=== PATIENT | female | born 1955 | race Caucasian/White ===

== ENCOUNTER → 2016-04-20 | Outpatient (CLI) | payer OTHER ==
[~2016-04-20] MED LIST: CALCIUM COMPLETE PO; CELLWISE PO; MULTI VITAMINS1 TAB PO; NORCO 325 MG-51 TAB PO; NUTRAVIEW PO; PROVEX CV PO; REPLENEX PO
== END ==
LOC: MC.RAD 13:30
DX: N63 Unspecified lump in breast (principal)

== ENCOUNTER → 2016-04-21 | Outpatient (CLI) | payer OTHER | LOC: MC.RAD 12:59 | DX: C50.412 Malignant neoplasm of upper-outer quadrant of left female breast (principal) ==

== ENCOUNTER → 2016-05-13 | Outpatient (CLI) | payer OTHER | LOC: COL.RAD 13:22 | DX: C50.912 Malignant neoplasm of unspecified site of left female breast (principal) | CPT/HCPCS: A9541; J0690; J1100; J1885; J2405; J2704; J3010 ==

== ENCOUNTER 2016-05-14 06:49 | Day surgery (SDC) | payer OTHER ==
[~2016-05-14] VITALS: Ht 170.2 cm; Wt 60.2 kg
[2016-05-14 10:14] VITALS: BP 149/74; PULSE 72; TEMP 97.4
[2016-05-14] MEDS ORDERED: MULTI VITAMINS1 TAB PO (10:19)
[2016-05-14] MEDS ORDERED: PROVEX CV PO (10:19)
[2016-05-14] MEDS ORDERED: CALCIUM COMPLETE PO (10:20)
[2016-05-14] MEDS ORDERED: NUTRAVIEW PO (10:20)
[2016-05-14] MEDS ORDERED: CELLWISE PO (10:21)
[2016-05-14] MEDS ORDERED: REPLENEX PO (10:21)
[2016-05-14 14:00] VITALS: TEMP 99.5
[2016-05-14 14:15] VITALS: BP 119/60; PULSE 67
[2016-05-14 14:30] VITALS: BP 128/70; PULSE 68
[2016-05-14] MEDS ORDERED: NORCO 325 MG-51 TAB PO (14:36)
[2016-05-14 14:45] VITALS: BP 121/77; PULSE 87
== END 2016-05-14 15:06 | disposition home or self-care (01) ==
LOC: MC.RAD 06:49 → SDCO 06:49 → MC.RAD 07:00 → SDCO 15:06
DX: C50.912 Malignant neoplasm of unspecified site of left female breast (principal)
CPT/HCPCS: J0690; J7120

== ENCOUNTER → 2016-05-28 | Outpatient (CLI) | payer OTHER | LOC: COL.VAS 12:17 | DX: C50.412 Malignant neoplasm of upper-outer quadrant of left female breast (principal) ==

== ENCOUNTER 2016-06-04 06:34 | Day surgery (SDC) | payer OTHER ==
[~2016-06-04] VITALS: Ht 170.2 cm; Wt 28.6 kg
[2016-06-04 07:21] VITALS: BP 135/76; PULSE 78; TEMP 98
[2016-06-04 09:15] VITALS: BP 109/62; PULSE 78; TEMP 97.1
[2016-06-04 09:30] VITALS: BP 121/78; PULSE 81
[2016-06-04 09:45] VITALS: BP 129/81; PULSE 75
== END 2016-06-04 10:15 | disposition home or self-care (01) ==
LOC: SDCO 06:34
DX: C50.912 Malignant neoplasm of unspecified site of left female breast (principal)
CPT/HCPCS: C1788; J0690; J1644; J2704; J3010; J7120

== ENCOUNTER → 2017-04-14 | Outpatient (CLI) | payer OTHER | LOC: MC.RAD 14:00 | DX: Z12.31 Encounter for screening mammogram for malignant neoplasm of breast (principal); Z98.890 Other specified postprocedural states; Z98.82 Breast implant status ==

== ENCOUNTER → 2017-10-07 | Outpatient (CLI) | payer OTHER | LOC: COL.RAD 09:28 | DX: M23.251 Derangement of posterior horn of lateral meniscus due to old tear or injury, right knee (principal); M22.41 Chondromalacia patellae, right knee ==

== ENCOUNTER → 2018-04-19 | Outpatient (CLI) | payer BC | LOC: MC.RAD 09:40 | DX: Z12.31 Encounter for screening mammogram for malignant neoplasm of breast (principal); Z98.890 Other specified postprocedural states ==

== ENCOUNTER → 2019-06-06 | Outpatient (CLI) | payer BC | LOC: MC.RAD 11:37 | DX: Z12.31 Encounter for screening mammogram for malignant neoplasm of breast (principal); Z98.890 Other specified postprocedural states ==

== ENCOUNTER → 2020-06-10 | Outpatient (CLI) | payer BC | LOC: MC.RAD 13:30 | DX: Z12.31 Encounter for screening mammogram for malignant neoplasm of breast (principal) ==

== ENCOUNTER → 2021-06-11 | Outpatient (CLI) | payer BC | LOC: MC.RAD 10:45 | DX: Z12.31 Encounter for screening mammogram for malignant neoplasm of breast (principal) ==

== ENCOUNTER → 2022-06-17 | Outpatient (CLI) | payer BC | LOC: COL.RAD 08:15 | DX: E04.2 Nontoxic multinodular goiter (principal) ==

== ENCOUNTER → 2022-07-14 | Outpatient (CLI) | payer BC ==
[~2022-07-14] VITALS: Ht 170.2 cm; Wt 74.1 kg
[2022-07-14 07:18] VITALS: BP 149/83; PULSE 92; TEMP 97.5
[2022-07-14 08:00] VITALS: BP 129/85; PULSE 63
== END ==
LOC: COL.RAD 06:12
DX: E04.1 Nontoxic single thyroid nodule (principal)
CPT/HCPCS: 32106

== ENCOUNTER → 2023-07-29 | Outpatient (CLI) | payer BC ==
[~2023-07-29] MED LIST changes: +CARDI-OMEGA1000 MG PO; +K2-D3 PO; +LIQUID CALCIUM1 SG3 PO; +MULTIPLE VITAMI1 CAP PO; +PHARMASSURE ZIN50 MG PO; +PROVEX-PLUS PO; +nutraview PO
== END ==
LOC: MC.RAD 13:15
DX: Z12.31 Encounter for screening mammogram for malignant neoplasm of breast (principal)